=== PATIENT | female | born 1975 | race Caucasian/White ===

== ENCOUNTER → 2019-04-15 | Emergency (ER) | payer OTHER ==
[~2019-04-15] VITALS: Ht 152.4 cm; Wt 54.4 kg
[~2019-04-15] MED LIST: SYNTHROID50 MCG; TOPROL XL50 M1 PO
== END | disposition home or self-care (01) ==
LOC: ER 10:21
DX: R00.2 Palpitations (principal)

== ENCOUNTER 2019-07-25 15:05 | Emergency (ER) | payer OTHER ==
[~2019-07-25] VITALS: Ht 129.5 cm; Wt 59.0 kg
== END 2019-07-25 23:03 | disposition home or self-care (01) ==
LOC: ER 15:05
DX: B34.9 Viral infection, unspecified (principal)

== ENCOUNTER 2020-05-11 09:54 | Outpatient (CLI) | payer OTHER | END 2020-05-11 15:23 | disposition home or self-care (01) | LOC: LAB 09:54 | DX: Z20.828 Contact with and (suspected) exposure to other viral communicable diseases (principal) ==

== ENCOUNTER 2020-05-26 09:43 | Emergency (ER) | payer OTHER ==
[~2020-05-26] VITALS: Ht 152.4 cm; Wt 54.4 kg
== END 2020-05-26 12:29 | disposition home or self-care (01) ==
LOC: ER 09:43
DX: U07.1 COVID-19 (principal); J06.9 Acute upper respiratory infection, unspecified

== ENCOUNTER 2021-02-02 12:09 | Outpatient (CLI) | payer OTHER | END 2021-02-02 12:10 | disposition home or self-care (01) | LOC: MAMO-SONO 12:09 | PROVIDERS: ATTEND Internal Medicine | DX: N60.11 Diffuse cystic mastopathy of right breast (principal); N64.89 Other specified disorders of breast; Z12.31 Encounter for screening mammogram for malignant neoplasm of breast ==

== ENCOUNTER 2025-02-05 07:19 | Outpatient (CLI) | payer OTHER | END 2025-02-05 07:21 | disposition home or self-care (01) | LOC: SONOGRAMA 07:19 | PROVIDERS: ATTEND Internal Medicine Gastroenterology | DX: R10.13 Epigastric pain (principal) ==